=== PATIENT | male | born 1965 | race Caucasian/White ===

== ENCOUNTER 2022-04-26 13:40 | Emergency (ER) | payer MEDICAID, SELFPAY ==
[2022-04-26 13:43] VITALS: BP 123/70; PULSE 81; RESP 16; TEMP 36.4; O2SAT 100; BMI 17.1
[2022-04-26 14:49] LABS: Absolute Lymphocyte Count 1.61 X10^3/uL (0.83-4.51); Absolute Neutrophil Count 4.3 X10^3/uL (2.0-7.7); Basophil# 0.02 X10^3/uL; Basophil% 0.3 % (0-1); Eosinophils% 4.3 % (0-5); Hematocrit 28.2 % (40-54); Hemoglobin 8.4 g/dL (13.0-16.5); Lymphocyte # 1.61 X10^3/ul (0.83-4.51); Lymphocyte % 23.1 % (19-41); Mean Corp Hgb Conc 29.8 g/dL (32-36); Mean Corpuscular Hgb 23.1 pg (27.0-32.0); Mean Corpuscular Volume 77.5 fL (80-94); Mean Platelet Vol. 8.5 fl (6.2-12.0); Monocyte# 0.75 X10^3/uL; Monocyte% 10.7 % (0-10); NRBC Flagged by Analyzer 0 % (0-5); Neutrophil # 4.27 X10^3/uL (2.7-7.7); Neutrophil % 61.2 % (47-70); Platelet Count 473 K/mm3 (150-450); RBC Distribution Width CV 17.6 % (11.6-14.6); RBC Distribution Width SD 47.8 fl (35.1-43.9); Red Blood Count 3.64 M/mm3 (4.6-6.2)
--- NOTE | 2022-04-26 15:04 | NURSING ---
PAGED DR PIPER. SHE IS IN A MEETING [phone]
--- NOTE | 2022-04-26 15:58 | EDS_ITS ---
HPI History of Present Illness Chief Complaint: Abn Labs Informant: patient Narrative Narrative: Patient is a 56-year-old male with history of stroke and left lower leg amputation presenting from [facility] for concern for anemia and occult positive stool. Patient had a hemoglobin of 7.4 drawn on 22 April. He also had a positive occult stool. He follows with Dr. Ralph. He was sent here for possible blood transfusion. Patient is asymptomatic and has no complaints. [facility] Medical History (Updated 04/26/22 @ 15:[address] Jennifer Go, ) Aphasia Cerebral infarction due to embolism of left middle cerebral artery Crohn disease Depression, unspecified Hemiplegia and hemiparesis following cerebral infarction affecting right dominant side Hypertension Oropharyngeal dysphagia Home Medications amlodipine 2.5 mg tablet 2.5 mg PO DAILY 04/26/22 [History Last Taken Unknown] amlodipine 5 mg tablet 5 mg PO DAILY 04/26/22 [History Last Taken Unknown] carvedilol 6.25 mg tablet 6.25 mg PO BID 04/26/22 [History Last Taken Unknown] escitalopram oxalate 5 mg tablet (Lexapro) 5 mg PO DAILY 04/26/22 [History Last Taken Unknown] tamsulosin 0.4 mg capsule 0.8 mg PO QHS 04/26/22 [History Last Taken Unknown] ticagrelor 90 mg tablet 90 mg PO DAILY 04/26/22 [History Last Taken Unknown] Allergy/AdvReac Type Severity Reaction Status Date / Time Sulfa (Sulfonamide Allergy PT UNSURE Verified 04/26/22 13:42 Antibiotics) OF REACTION Social History Smoking Status: Current every day smoker tobacco type: cigarettes ROS ROS ED Constitutional Constitutional ED: Denies chills or fever(s) Eyes Eyes: Denies change in vision ENT ENT ED: Denies sore throat Cardiovascular Cardiovascular: Denies chest pain or palpitations Respiratory/Chest Respiratory/Chest: Denies cough or dyspnea Gastrointestinal Gastrointestinal: Denies melena, nausea or vomiting Neurologic Neurologic: Denies headache(s) or weakness Psychiatric Psychiatric: Denies anxiety Hematologic/Lymphatic Hematologic/Lymphatic: Denies easy bleeding or easy bruising EXAM Physical Exam Const Vital Signs: 04/26/22 13:43 04/26/22 17:00 04/26/22 17:32 Temperature 97.6 F L Temperature Source Temporal Pulse Rate 81 85 85 Respiratory Rate 16 18 18 Blood Pressure 123/70 H 126/72 H Blood Pressure Mean 87 Pulse Ox 100 98 100 Oxygen Delivery Method Room Air Room Air Positive well nourished and well developed General Appearance ED: well developed and NAD; Negative for pallor HEENT Reports moist mucous membranes Eyes PERRL and EOMs intact bilaterally Neck supple Chest Wall inspection of chest normal Resp normal respiratory effort Resp Narrative: Speaking in full sentences Cardio regular rate and regular rhythm GI non-distended Extremity Extremity Narrative: Right lower leg amputation Neuro oriented x3 Sensorium / Orientation: alert Motor Exam: Negative for general weakness Psych mental status grossly normal Skin no rashes or lesions noted General Skin Exam: Negative for pallor MDM MDM MDM Narrative Medical decision making narrative: Patient evaluated for concern of anemia and occult GI bleed and possibly requiring a blood transfusion. Patient's hemoglobin has improved since 22 April and is now 8.4. He is asymptomatic with normal vital signs. At this time I think he can be discharged back to [facility]. I do not think he requires a blood transfusion and his occult GI bleed is already being worked up outpatient. I spoke with the patient's physician, who is agreeable to this plan of care. Patient does not have findings consistent with hypovolemic/hemorrhagic shock. Lab Data Labs: Laboratory Results - last 24 hr 04/26/22 04/26/22 14:30 14:30 WBC 7.0 RBC 3.64 L Hgb 8.4 L Hct 28.2 L MCV 77.5 L MCH 23.1 L MCHC 29.8 L RDW Std Deviation 47.8 H RDW Coeff of [place] 17.6 H Plt Count 473 H MPV 8.5 Immature Gran % (Auto) 0.400 Neut % (Auto) 61.2 Lymph % (Auto) 23.1 [place] % (Auto) 10.7 H Eos % (Auto) 4.3 Baso % (Auto) 0.3 Absolute Neuts (auto) 4.3 Absolute Lymphs (auto) 1.61 Nucleated RBC % 0 Blood Type A POSITIVE Antibody Screen NEGATIVE Discharge Plan Triage Chief Complaint: Abn Labs ED Provider: Jennifer Go Dx/Rx/DC Orders Clinical Impression: Anemia, Occult GI bleeding Instructions: Anemia Prescriptions: No Action carvedilol 6.25 mg Tablet 6.25 mg PO BID Rx Instructions: must administer with a meal/food amlodipine 2.5 mg Tablet 2.5 mg PO DAILY amlodipine 5 mg Tablet 5 mg PO DAILY tamsulosin 0.4 mg Capsule 0.8 mg PO QHS escitalopram oxalate [Lexapro] 5 mg Tablet 5 mg PO DAILY ticagrelor 90 mg Tablet 90 mg PO DAILY Primary Care Provider: Myriam Goodson Referrals: Myriam Goodson MD [Primary Care Provider] - Activity Restrictions/Additional Instructions: Your hemoglobin is improving. He did not require transfusion. Continue to follow-up with your GI doctor. Disposition Disposition: Residential Facility
--- NOTE | 2022-04-26 16:13 | NURSING ---
CALLED [facility], ETA IS 90 MIN
[2022-04-26 17:00] VITALS: PULSE 85; RESP 18; O2SAT 98
[2022-04-26 17:32] VITALS: BP 126/72; PULSE 85; RESP 18; O2SAT 100
--- NOTE | 2022-04-26 17:34 | ED.RN ---
CALLED [facility] ABOUT DISCHARGE OF PT, SPOKE WITH CHRISTOPHER
== END 2022-04-26 17:36 | disposition skilled nursing facility (03) ==
PROVIDERS: Emergency Provider Emergency Medicine; PCP Internal Medicine; Visit Provider Emergency Medicine
DX: K92.2 Gastrointestinal hemorrhage, unspecified (principal); Z89.512 Acquired absence of left leg below knee; Z86.73 Personal history of transient ischemic attack (TIA), and cerebral infarction without residual deficits; F17.210 Nicotine dependence, cigarettes, uncomplicated; I10 Essential (primary) hypertension; D64.9 Anemia, unspecified
CPT/HCPCS: 36415; 85025; 86850; 86900; 86901; 99284; A4216